=== PATIENT | male | born 1970 | race Caucasian/White ===

== ENCOUNTER 2017-01-14 20:26 | Emergency (ER) ==
[2017-01-14] MEDS ORDERED: KEPPRA PO ONE (20:41)
[2017-01-14] MEDS ORDERED: TYLENOL PO ONE (20:42)
[2017-01-14] MEDS ORDERED: KEPPRA 500 MG in NS 100 ML IV ONE (20:45)
[2017-01-14] MEDS ORDERED: TORADOL IV ONE (20:45)
--- NOTE | 2017-01-14 20:47 | PROVIDER DOCUMENTATION ---
HPI-Neurological Disorder - General Source: patient - History of Present Illness-Neuro Onset/Duration: reports: just prior to arrival Timing: reports: intermittent Context: reports: seizure activity Cognitive Baseline: alert, oriented x3 Gait Baseline: walks without assistance Associated Symptoms: reports: seizures Similar Symptoms Previously?: Yes Recently seen or treated by another doctor?: Yes - Seizure First time to have a seizure?: No Witnessed seizure?: Yes Character of Seizure: reports: generalized shaking all over Post-ictal Symptoms: reports: none Seizure related injury: none <Blanca Saba - Last Filed: 01/14/17 22:06> <Manav Reis - Last Filed: 01/14/17 22:08> - General Chief Complaint: Seizure Stated Complaint: seizure Time Seen by Provider: 01/14/17 20:40 Allergies/Adverse Reactions: Patient Allergies Allergy/AdvReac Type Severity Reaction Status Date / Time Penicillins Allergy Severe ANAPHYLAXIS Verified 12/25/16 22:08 phenytoin sodium * Allergy Severe ANAPHYLAXIS Verified 12/25/16 22:08 [From Dilantin] phenytoin sodium extended * Allergy Severe ANAPHYLAXIS Verified 12/25/16 22:08 [From Dilantin] Home Medications: Home Medication List Medication Instructions Recorded Confirmed Last Taken Type Levetiracetam [Keppra] 1,000 mg PO BID #60 tablet 10/17/16 01/14/17 12/25/16 18: 00 Rx Levetiracetam [Keppra] 1,000 mg PO BID #60 tablet 01/14/17 Unknown Rx - History of Present Illness-Neuro Nature of Presenting Problem: 46 year old M presents to the ED 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 Pt states that he was just release from custodial and has no money to buy his medications. ( Blanca Saba) Review of Systems - Adult - REVIEW OF SYSTEMS - ADULT Constitutional: denies: chills, fever Eyes: reports: no symptoms reported Ears, Nose, Mouth & Throat: reports: no symptoms reported Cardiovascular: denies: chest pain, palpitations Respiratory: denies: cough, shortness of breath Gastrointestinal: denies: abdominal pain, nausea, vomiting Genitourinary: reports: no symptoms reported Musculoskeletal: reports: no symptoms reported Integumentary: reports: no symptoms reported Neurological: reports: seizure. denies: syncope Psychiatric: reports: no symptoms reported Endocrine: reports: no symptoms reported Hematologic/Lymphatic: reports: no symptoms reported Allergic/Immunologic: reports: no symptoms reported All Other Systems: Reviewed and Negative <Blanca Saba - Last Filed: 01/14/17 22:06> Past History - Adult - PAST MEDICAL HISTORY-ADULT Review of Records: reports: Nursing Assessment Review, Medications Reviewed Major Childhood Illnesses: reports: denies history Gastrointestinal: reports: hepatitis (C) Neurological: reports: Seizures/Epilepsy (alcohol withdrawal) - PRIOR SURGERIES/PROCEDURES Surgical/Procedure History: reports: back/neck - IMMUNIZATION STATUS Childhood Immunizations: See Nurse Assessment Flu Vaccine: See Nurse Assessment - SOCIAL HISTORY Smoking: cigarettes Provider spent 3-5 mins advising pt. on dangers of tobacco.: Discussed manners to quit use, and f/u contacts for add'l counseling. Substance Use: none presently/history of abuse, alcohol Alcohol Use Frequency: sober (former use) <Blanca Saba - Last Filed: 01/14/17 22:06> Physical Exam- Neurological - Physical Exam-Neuro Initial Vital Signs Reviewed: Yes General Appearance: appears well, alert, no apparent distress Head Injury: no evidence of injury Respiratory: chest non-tender, lungs clear, normal breath sounds Cardiovascular: normal peripheral pulses, regular rate, rhythm, no edema Abdominal Exam: normal bowel sounds, non tender, soft fur mixer Exam: normal hearing, normal speech, PERRL Neurologic: fur mixer II-XII nml as tested, no motor/sensory deficits Integumentary: normal color, normal turgor, warm/dry Psych/Mental Status: normal mood/affect, normal thought content, normal thought process, oriented x 3 <Blanca Saba - Last Filed: 01/14/17 22:06> Progress - REASSESSMENT Reassessment #1 Time Reassessed: 20:43 (Pt seizing, Dr. Reis made aware. Keppra IV ordered) <Blanca Saba - Last Filed: 01/14/17 22:06> <Manav Reis - Last Filed: 01/14/17 22:08> - PLAN OF CARE/RESULTS Progress/Plan/Lab Results: plan of care: labs, medications Orders Category Date Time Status URINE DRUG SCREEN PL Stat Lab 01/14/17 21:07 Completed Acetaminophen [Tylenol] Med 01/14/17 21:06 Discontinued 650 mg .ROUTE .STK-MED ONE Acetaminophen [Tylenol] Med 01/14/17 20:42 Discontinued 650 mg PO NOW ONE Ketorolac [Toradol] Med 01/14/17 20:45 Discontinued 30 mg IV NOW ONE Levetiracetam [Keppra] Med 01/14/17 21:06 Discontinued 1,000 mg .ROUTE .STK-MED ONE Levetiracetam [Keppra] Med 01/14/17 20:41 Discontinued 1,000 mg PO NOW ONE Levetiracetam [Keppra] Med 01/14/17 21:49 Discontinued 500 mg .ROUTE .STK-MED ONE Levetiracetam [Keppra] 500 mg Med 01/14/17 20:45 Discontinued 0.9% Sodium Chloride Inj [Ns] 100 ml IV NOW Laboratory Tests 01/14/17 21:07 Urine Opiates Screen NONE DETECTED Ur Oxycodone Screen NONE DETECTED Urine Methadone Screen NONE DETECTED Ur Barbituates Screen NONE DETECTED Ur Tricyclics Screen NONE DETECTED Ur Phencyclidine Scrn NONE DETECTED Ur Amphetamines Screen NONE DETECTED U Methamphetamines Scrn NONE DETECTED Urine MDMA Screen NONE DETECTED U Benzodiazepines Scrn NONE DETECTED Urine Cocaine Screen NONE DETECTED U Cannabinoids Screen NONE DETECTED Vital Signs - 24 hr 01/14/17 20:29 Temperature 98.2 F Pulse Rate 102 H Respiratory 18 Rate Blood Pressure 113/81 O2 Sat by Pulse 98 Oximetry Pt given results and will be d/c home w/ rx to follow up with PCP. Pt verbally understood instructions. PT remained clinically stable throughout the course of the ED stay and will return if symptoms worsen. (Blanca Saba) Departure <Blanca Saba - Last Filed: 01/14/17 22:06> - Departure Time of Disposition Order: 22:00 Certified Medical Emergency: Emergent <Manav Reis - Last Filed: 01/14/17 22:08> - Departure DIAGNOSIS: Epilepsy without status epilepticus Qualifiers: Epilepsy type: epileptic spasms Intractability: not intractable Qualified Code( s): G40.822 - Epileptic spasms, not intractable, without status epilepticus Disposition: HOME 01 Condition: Stable Prescriptions: Levetiracetam [Keppra] 1,000 mg PO BID #60 tablet Attestation - Scribe Verification/Attestation Scribe:: Blanca Saba Acting as Scribe for:: Manav Reis Scribe documention review:: This chart was documented by a scribe and accurately reflects the service the provider performed and the decisions made by the provider. <Blanca Saba - Last Filed: 01/14/17 22:06> Physician Attestation - Physician Attestation I, the provider, attest to the following statement:: Manav Reis Physician documentation Attestation:: This documentation recorded by the scribe accurately reflects the service I personally performed and the decisions made by me. <Blanca Saba - Last Filed: 01/14/17 22:06>
[2017-01-14] MEDS ORDERED: TYLENOL ONE (21:06)
[2017-01-14] MEDS ORDERED: KEPPRA ONE ×2 (21:06→21:49)
[2017-01-14 22:00] LABS: UR AMPHETAMINES QUAL NONE DETECTED (NONE DETECT); UR BARBITUATES QUAL NONE DETECTED (NONE DETECT); UR BENZODIAZEPIN QUAL NONE DETECTED (NONE DETECT); UR CANNABINOIDS QUAL NONE DETECTED (NONE DETECT); UR COCAINE QUAL NONE DETECTED (NONE DETECT); UR MDMA QUAL NONE DETECTED (NONE DETECT); UR METHADONE QUAL NONE DETECTED (NONE DETECT); UR METHAMPHETAMINE QUAL NONE DETECTED (NONE DETECT); UR OPIATES QUAL NONE DETECTED (NONE DETECT); UR OXYCODONE QUAL NONE DETECTED (NONE DETECT); UR PCP QUAL NONE DETECTED (NONE DETECT); UR TCA QUAL NONE DETECTED (NONE DETECT)
[2017-01-14 22:28] VITALS: BP 114/82
== END 2017-01-14 22:27 | disposition home or self-care (01) ==
LOC: P.ED 20:26
DX: G40.822 Epileptic spasms, not intractable, without status epilepticus (principal); B19.20 Unspecified viral hepatitis C without hepatic coma; F17.210 Nicotine dependence, cigarettes, uncomplicated; Z71.6 Tobacco abuse counseling; Z79.899 Other long term (current) drug therapy
CPT/HCPCS: 80305; J1885; J1953

== ENCOUNTER 2017-01-17 12:06 | Emergency (ER) ==
[2017-01-17 12:29] VITALS: BP 118/65
[2017-01-17] MEDS ORDERED: NORCO-7.5 PO ONE (12:49)
[2017-01-17] MEDS ORDERED: ZOFRAN ODT PO ONE (12:49)
--- NOTE | 2017-01-17 12:56 | PROVIDER DOCUMENTATION ---
HPI-Musculoskeletal Pain/Inj - GENERAL Source: patient - HX OF PRESENT ILLNESS-MUSKULOSKELTAL Quality of Pain: reports: aching Severity in ED: moderate Onset/Duration: 24 hours ago Timing: still present Any recent injury?: Yes Locality of Occurance: Home Similar Symptoms Previously?: Yes Recently seen or treated by another doctor?: No <Kaylee Thompson - Last Filed: 01/17/17 12:56> <Wily Lorenzana - Last Filed: 01/17/17 13:02> - GENERAL Chief Complaint: Extremity Injury Stated Complaint: ANKLE INJURY Time Seen by Provider: 01/17/17 12:30 - HX OF PRESENT ILLNESS-MUSKULOSKELTAL Nature of Presenting Problem: Presents to er with cc of left ankle pain x 1 day reports rolled left ankle now has swelling. Hx of left ankle fx. (Kaylee Thompson) Review of Systems - Adult - REVIEW OF SYSTEMS - ADULT Constitutional: denies: chills, fever, fatique Eyes: reports: no symptoms reported Ears, Nose, Mouth & Throat: denies: ear discharge, sinus problem, loose teeth Cardiovascular: reports: no symptoms reported Respiratory: reports: no symptoms reported Gastrointestinal: reports: no symptoms reported Genitourinary: reports: no symptoms reported Musculoskeletal: reports: see HPI, joint pain, joint swelling. denies: frequent leg cramps, muscle weakness, neck pain Integumentary: reports: no symptoms reported Neurological: reports: no symptoms reported Psychiatric: reports: no symptoms reported Endocrine: reports: no symptoms reported Hematologic/Lymphatic: reports: no symptoms reported Allergic/Immunologic: reports: no symptoms reported All Other Systems: Reviewed and Negative <Kaylee Thompson - Last Filed: 01/17/17 12:56> Past History - Adult - PAST MEDICAL HISTORY-ADULT Review of Records: reports: Nursing Assessment Review, Medications Reviewed Major Childhood Illnesses: reports: denies history Gastrointestinal: reports: hepatitis (C) Neurological: reports: Seizures/Epilepsy (alcohol withdrawal) - PRIOR SURGERIES/PROCEDURES Surgical/Procedure History: reports: back/neck - IMMUNIZATION STATUS Childhood Immunizations: See Nurse Assessment Flu Vaccine: See Nurse Assessment - SOCIAL HISTORY Smoking: denies Substance Use: none/never <Kaylee Thompson - Last Filed: 01/17/17 12:56> Physical Exam-Injury Related - Physical Exam-Injury Related Initial Vital Signs Reviewed: Yes General Appearance: appears well, alert, no apparent distress Eyes: PERRL/EOMI Neck: non-tender, full range of motion, supple, normal inspection Respiratory: chest non-tender, lungs clear, normal breath sounds, no pleuratic chest pain, no respiratory distress, no accessory muscle use Cardiovascular: regular rate, rhythm, no edema, no gallop, no JVD, no murmur Peripheral Pulses: dorsalis-pedis (R): 2+, dorsalis-pedis (L): 2+ Abdominal Exam: non tender, soft, no organomegaly, no pulsatile mass Extremity: normal range of motion, no pedal edema, no calf tenderness, swelling (lateral aspect left ankle), tenderness (ttp left ankle) Integumentary: normal color, warm/dry Psych/Mental Status: normal mood/affect, normal thought content, normal thought process, oriented x 3 - Glascow Coma Score Best Eye Response (Carla): (4) open spontaneously Best Verbal Response (Carla): (5) oriented Best Motor Response ([place]): (6) obeys commands Carla Total: 15 <Kaylee Thompson - Last Filed: 01/17/17 12:56> Progress - XRAY 1 XRAY: Left XRAY Study: Ankle Impression: Normal (no acute fx old fx noted), See EMR Report <Kaylee Thompson - Last Filed: 01/17/17 12:56> <Wily Lorenzana - Last Filed: 01/17/17 13:02> - PLAN OF CARE/RESULTS Progress/Plan/Lab Results: Orders Category Date Time Status [place] Wrap Application DIRECTED Care 01/17/17 12:52 Active Crutches DIRECTED Care 01/17/17 12:52 Active ANKLE COMPLETE LEFT [RAD] Stat Exams 01/17/17 12:30 Taken Hydrocodone/APAP 7.5 mg/325 mg [[place]-7.5] Med 01/17/17 12:49 Discontinued 1 each PO NOW ONE Ondansetron Odt [Zofran Odt] Med 01/17/17 12:49 Discontinued 4 mg PO NOW ONE Vital Signs - 24 hr 01/17/17 12:27 Temperature 97.7 F Pulse Rate 120 H Respiratory 20 Rate Blood Pressure 118/65 O2 Sat by Pulse 100 Oximetry (Kaylee Thompson) Departure <Kaylee Thompson - Last Filed: 01/17/17 12:56> - Departure Time of Disposition Order: 13:00 Certified Medical Emergency: Urgent <Wily Lorenzana - Last Filed: 01/17/17 13:02> - Departure DIAGNOSIS: Left ankle sprain Qualifiers: Encounter type: initial encounter Involved ligament of ankle: unspecified ligament Qualified Code(s): S93.402A - Sprain of unspecified ligament of left ankle, initial encounter Disposition: HOME 01 Condition: Good Additional Instructions: Take medication as prescribed. Rest, ice and elevate. Follow up with an orthopedist. ED Follow Up Instructions: You have been treated by a care provider in the Emergency Department. These instructions are being provided to you so you can have an understanding of how to care for yourself upon discharge. Upon discharge from the Emergency Department, you are responsible for making arrangements for follow-up care by a physician of your choice. Take all prescribed medications as directed. Return to the Emergency Department immediately for any new or worsening symptoms. You may call the Physician Referral phone number at [phone] to obtain a list of Physicians who are taking new patients. Prescriptions: Cyclobenzaprine [Flexeril] 10 mg PO TID #20 tablet Meloxicam [Mobic] 7.5 mg PO DAILY PRN PRN #15 tablet PRN Reason: Pain Referrals: None,PCP [Primary Care Provider] - Grant Wray MD [STAFF PHYSICIAN] - Attestation - Scribe Verification/Attestation Scribe:: Kaylee Thompson Acting as Scribe for:: Wily Lorenzana Scribe documention review:: This chart was documented by a scribe and accurately reflects the service the provider performed and the decisions made by the provider. <Kaylee Thompson - Last Filed: 01/17/17 12:56> - Physician/ JAYY Attestation Patient care was provided by Advanced Practice Provider:: Yes Advanced Practice Provider:: Wily Lorenzana Advanced Practice Provider documentation review:: The Mid-level provider documentation, treatment plan and medical decision making was reviewed by the physician who agrees with all treatment and medical decision making by the [facility]. <Wily Lorenzana - Last Filed: 01/17/17 13:02> Physician Attestation
--- NOTE | 2017-01-17 13:35 | Diag Imaging Result Document ---
PROCEDURE NAME: ANKLE COMPLETE LEFT - 01/17/2017 LEFT ANKLE, THREE VIEWS: FINDINGS: There is lateral soft tissue swelling. There is an os subfibulare. This is a normal variant. No fracture. No dislocation. IMPRESSION: No acute bony injury.
== END 2017-01-17 13:33 | disposition home or self-care (01) ==
LOC: ED 12:06
DX: S93.402A Sprain of unspecified ligament of left ankle, initial encounter (principal); M25.572 Pain in left ankle and joints of left foot; M25.472 Effusion, left ankle; R56.9 Unspecified convulsions; B19.20 Unspecified viral hepatitis C without hepatic coma; Z79.899 Other long term (current) drug therapy; X58.XXXA Exposure to other specified factors, initial encounter
CPT/HCPCS: 99283

== ENCOUNTER 2017-01-24 20:01 | Emergency (ER) ==
[2017-01-24] MEDS ORDERED: KEPPRA 500 MG in NS 100 ML IV ONE (20:05)
[2017-01-24] MEDS ORDERED: ATIVAN IV ONE (20:05)
--- NOTE | 2017-01-24 20:09 | PROVIDER DOCUMENTATION ---
HPI-Neurological Disorder - General Source: patient, EMS - History of Present Illness-Neuro Severity: reports: severe Onset/Duration: reports: unsure Timing: reports: intermittent Context: reports: seizure activity Character of Altered Mental Status: reports: trouble concentrating, seizure activity, decreased responsiveness. denies: disoriented, confused, combative, agitated, unresponsive Any recent trauma/injury?: reports: to head Cognitive Baseline: alert, oriented x3 Gait Baseline: walks without assistance Associated Symptoms: reports: headache, fainting, neck/back pain, muscle spasms , seizures. denies: short of breath, dizziness, confusion, chest pain, loss of consciousness, nausea, paresthesia, sleepy, slurred speech, tingling in legs/ feet, trouble walking, vision changes, weakness - Seizure First time to have a seizure?: No Witnessed seizure?: Yes Episode details: reports: details of seizure cannot be obtained, details of seizure cannot be verified Episode Frequency: frequent episodes Preceding symptoms/context:: missed recent doses of seizure meds (out of rx; hit head earlier today) Character of Seizure: reports: generalized shaking all over. denies: staring Post-ictal Symptoms: reports: none <Michael Avilez - Last Filed: 01/24/17 20:41> <Satya Montana - Last Filed: 01/24/17 20:48> - General Stated Complaint: seizure Time Seen by Provider: 01/24/17 20:03 Allergies/Adverse Reactions: Patient Allergies Allergy/AdvReac Type Severity Reaction Status Date / Time Penicillins Allergy Severe ANAPHYLAXIS Verified 01/17/17 12:50 phenytoin sodium * Allergy Severe ANAPHYLAXIS Verified 01/17/17 12:50 [From Dilantin] phenytoin sodium extended * Allergy Severe ANAPHYLAXIS Verified 01/17/17 12:50 [From Dilantin] Home Medications: Home Medication List Medication Instructions Recorded Confirmed Last Taken Type Levetiracetam [Keppra] 1,000 mg PO BID #60 tablet 01/14/17 01/17/17 Unknown Rx Cyclobenzaprine [Flexeril] 10 mg PO TID #20 tablet 01/17/17 Unknown Rx Meloxicam [Mobic] 7.5 mg PO DAILY PRN PRN #15 tablet 01/17/17 Unknown Rx Gabapentin [Neurontin] 300 mg PO BID #60 capsule 01/24/17 Unknown Rx - History of Present Illness-Neuro Nature of Presenting Problem: Pt is a 46 yom who presents to ER via EMS with CC of seizures x4 today. Pt reports that he was discharged from retirement 4 days ago, has a L ankle fx (betina bandaged) (previous report did not indicate any fx of wrist/ankle) and reports that he fell earlier today (time unspecified). Pt has hx of seizures and reports is out of his kepra, and is now complaining of head/neck pain as well as L ankle pain. 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 (Michael Avilez) Review of Systems - Adult - REVIEW OF SYSTEMS - ADULT Constitutional: denies: chills, fever, fatique, night sweats, weight gain, weight loss Eyes: reports: no symptoms reported Ears, Nose, Mouth & Throat: reports: no symptoms reported Cardiovascular: denies: chest pain, edema, heart murmur, irregular heart rate, orthopnea, palpitations, poor circulation, PND, syncope Respiratory: reports: no symptoms reported Gastrointestinal: reports: no symptoms reported Genitourinary: reports: no symptoms reported Musculoskeletal: reports: neck pain. denies: bone pain, back pain, frequent leg cramps, joint pain, joint swelling, muscle aches, muscle weakness Integumentary: reports: no symptoms reported Neurological: reports: headache/migraines, seizure, tremors. denies: ataxia, dizziness/vertigo, loss of balance, numbness, paresthesia, slurred speech, syncope Psychiatric: reports: no symptoms reported Endocrine: reports: no symptoms reported Hematologic/Lymphatic: reports: no symptoms reported Allergic/Immunologic: reports: no symptoms reported All Other Systems: Reviewed and Negative <Michael Avilez - Last Filed: 01/24/17 20:41> Past History - Adult - PAST MEDICAL HISTORY-ADULT Review of Records: reports: Nursing Assessment Review, Medications Reviewed Gastrointestinal: reports: hepatitis (C) Neurological: reports: Seizures/Epilepsy (alcohol withdrawal) - PRIOR SURGERIES/PROCEDURES Surgical/Procedure History: reports: back/neck - IMMUNIZATION STATUS Childhood Immunizations: See Nurse Assessment Flu Vaccine: See Nurse Assessment <Michael Avilez - Last Filed: 01/24/17 20:41> Physical Exam- Neurological - Physical Exam-Neuro Initial Vital Signs Reviewed: Yes General Appearance: appears well, alert, mild distress, lethargic. negative: no apparent distress, slow to respond, obtunded, combative Eye Exam: bilateral eye: normal inspection, PERRL, EOMI Head Injury: no evidence of injury. negative: lacerations, swelling, tenderness Neck: non-tender, full range of motion, supple. negative: C-spine tenderness, limited range of motion, lymphadenopathy Respiratory: chest non-tender, lungs clear, normal breath sounds. negative: respiratory distress, decreased breath sounds, accessory muscle use, wheezing Cardiovascular: normal peripheral pulses, regular rate, rhythm. negative: bradycardia, tachycardia, irregularly irregular Abdominal Exam: normal bowel sounds, non tender, soft, no organomegaly, no pulsatile mass. negative: abnormal bowel sounds, distended, tenderness Extremity: normal range of motion, non-tender, normal gait, normal inspection, no pedal edema, no calf tenderness, normal capillary refill. 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 negative: facial asymmetry, facial droop, facial paresthesias, facial weakness Motor/Sensory: no motor deficit, no sensory deficit, no pronator drift. negative: weak motor strength RUE, weak motor strength LUE, weak motor strength RLE, weak motor strength LLE Neurologic: dye colorist formulator II-XII nml as tested, grossly normal, no motor/sensory deficits . negative: facial droop, focal weakness, motor weakness, sensory deficit Psych/Mental Status: normal mood/affect, normal thought content, normal thought process, oriented x 3, disheveled, depressed affect - Glascow Coma Scale Total Glascow Score: 15 <Michael Avilez - Last Filed: 01/24/17 20:41> Progress - REASSESSMENT Reassessment #1 Time Reassessed: 20:37 Status: improving (Pt is A/Ox3; Still on backboard and C-collar, holding phone above head with bilateral upper extremities, no acute distress. Pt reports that he is no longer having any neck pain, but does still complain of head pain and is requesting rx for neurontin) - CT/MRI 1 CT Study: Cervical Spine, Head Impression: See EMR Report CT Results: Negative <Michael Avilez - Last Filed: 01/24/17 20:41> - REASSESSMENT Reassessment #1 Time Reassessed: 20:47 (fluu rom of all extremities/gcs=15 .pt agree w/dc home ) Status: improving <Satya Montana - Last Filed: 01/24/17 20:48> - PLAN OF CARE/RESULTS Progress/Plan/Lab Results: POC: Head/Neck CT Vital Signs - 24 hr 01/24/17 20:28 Temperature 98.3 F Pulse Rate 122 H Respiratory 20 Rate Blood Pressure 116/70 O2 Sat by Pulse 94 L Oximetry Orders Category Date Time Status HEAD/C-SPINE W/O CONTRAST [CT] Stat Exams 01/24/17 20:03 Taken ALCOHOL BLOOD Stat Lab 01/24/17 20:03 Received BASIC METABOLIC PANEL [CHEM] Stat Lab 01/24/17 20:03 Received MAGNESIUM [CHEM] Stat Lab 01/24/17 20:03 Completed Gabapentin [Neurontin] Med 01/24/17 20:41 Discontinued 600 mg PO NOW ONE Ketorolac [Toradol] Med 01/24/17 20:41 Discontinued 30 mg IV NOW ONE Levetiracetam [Keppra] 500 mg Med 01/24/17 20:05 Discontinued 0.9% Sodium Chloride Inj [Ns] 100 ml IV NOW Lorazepam [Ativan] Med 01/24/17 20:05 Discontinued 1 mg IV NOW ONE Laboratory Tests 01/24/17 20:03 Magnesium 2.3 (Michael Avilez) Departure - Departure Time of Disposition Order: 20:42 Certified Medical Emergency: Emergent <Michael Avilez - Last Filed: 01/24/17 20:41> - Departure Time of Disposition Order: 20:46 Certified Medical Emergency: Emergent <Satya Montana - Last Filed: 01/24/17 20:48> - Departure DIAGNOSIS: Seizure, Chronic neck and back pain Disposition: HOME 01 Condition: Stable Additional Instructions: ED Follow Up Instructions: You have been treated by a care provider in the Emergency Department. These instructions are being provided to you so you can have an understanding of how to care for yourself upon discharge. Upon discharge from the Emergency Department, you are responsible for making arrangements for follow-up care by a physician of your choice. Take all prescribed medications as directed. Return to the Emergency Department immediately for any new or worsening symptoms. You may call the Physician Referral phone number at [phone] to obtain a list of Physicians who are taking new patients. Prescriptions: Gabapentin [Neurontin] 300 mg PO BID #60 capsule Referrals: Trina Vang III, MD [STAFF PHYSICIAN] - Attestation - Scribe Verification/Attestation Scribe:: Michael Avilez Acting as Scribe for:: Satya Montana Scribe documention review:: This chart was documented by a scribe and accurately reflects the service the provider performed and the decisions made by the provider. <Michael Avilez - Last Filed: 01/24/17 20:41> Physician Attestation
[2017-01-24] MEDS ORDERED: TORADOL IV ONE (20:41)
[2017-01-24] MEDS ORDERED: NEURONTIN PO ONE (20:41)
[2017-01-24 21:01] LABS: AGAP 17; BUN 14 mg/dL (8-22); CALCIUM 9.4 mg/dL (8.8-10.2); CHLORIDE 100 mmol/L (98-107); COSMO 278; POTASSIUM 4.1 mmol/L (3.5-5.1); SODIUM 140 mmol/L (136-145); TCO2 23 mmol/L (25-35)
--- NOTE | 2017-01-24 21:32 | Diag Imaging Result Document ---
PROCEDURE NAME: HEAD/C-SPINE W/O CONTRAST - 01/24/2017 CT HEAD AND C-SPINE WITHOUT CONTRAST: COMPARISON: 12/25/2016. FINDINGS: HEAD: There is no discrete intracranial mass, mass effect, or intracranial hemorrhage. There is no evidence of acute infarct. There is no evidence of hydrocephalus. Surrounding soft tissues are grossly unremarkable. Calvaria is intact. C-SPINE: There has been a prior laminectomy at C4 and there is posterior fusion hardware at C3-4 and C4-5. The hardware is stable. There is no evidence of fracture, subluxation, or intrinsic osseous lesion, otherwise. The central canal appears to be patent. There are emphysematous changes at the lung apices. Surrounding soft tissues are grossly unremarkable, otherwise. IMPRESSION: 1. No evidence of acute intracranial pathology. 2. Postsurgical changes as described but no evidence of fracture or other definite acute C-spine injury.
[2017-01-24 22:02] VITALS: BP 126/78
== END 2017-01-24 22:10 | disposition home or self-care (01) ==
LOC: EDBD → EDUNIT# → ED 20:01
DX: R56.9 Unspecified convulsions (principal); M54.2 Cervicalgia; M54.9 Dorsalgia, unspecified; G89.29 Other chronic pain; R51 Headache; M62.838 Other muscle spasm; R25.1 Tremor, unspecified; B19.20 Unspecified viral hepatitis C without hepatic coma; R53.83 Other fatigue; Z79.899 Other long term (current) drug therapy
CPT/HCPCS: 70450; 72125; 80048; 83735; G0480; J1885; J1953; J2060; 80320

== ENCOUNTER 2017-01-25 23:58 | Emergency (ER) ==
[2017-01-26] MEDS ORDERED: ATIVAN IV ONE ×2 (00:02→01:56)
[2017-01-26] MEDS ORDERED: MOTRIN PO ONE (00:02)
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
[2017-01-26 00:58] LABS: AGAP 12; ALBUMIN 4.3 g/dL (3.5-5.0); ALKALINE PHOSPHATASE 72 U/L (32-122); BUN 15 mg/dL (8-22); CALCIUM 9.1 mg/dL (8.8-10.2); CHLORIDE 106 mmol/L (98-107); CK PROFILE 177 U/L (24-204); COSMO 287; GOT 32 U/L (10-34); GPT 49 U/L (10-44); SODIUM 142 mmol/L (136-145); TCO2 24 mmol/L (25-35); TOTAL BILIRUBIN 0.31 mg/dL (0.20-1.00); TOTAL PROTEIN 7.5 g/dL (6.3-8.3)
[2017-01-26 01:07] LABS: UR AMPHETAMINES QUAL NONE DETECTED (NONE DETECT); UR BARBITUATES QUAL NONE DETECTED (NONE DETECT); UR BENZODIAZEPIN QUAL NONE DETECTED (NONE DETECT); UR CANNABINOIDS QUAL NONE DETECTED (NONE DETECT); UR COCAINE QUAL NONE DETECTED (NONE DETECT); UR METHADONE QUAL NONE DETECTED (NONE DETECT); UR OPIATES QUAL NONE DETECTED (NONE DETECT); UR OXYCODONE QUAL NONE DETECTED (NONE DETECT); UR PCP QUAL NONE DETECTED (NONE DETECT)
[2017-01-26] MEDS ORDERED: AMMONIA AROMATIC ONE (01:09)
[2017-01-26] MEDS ORDERED: VALIUM ONE (01:50)
[2017-01-26] MEDS ORDERED: ATIVAN ONE (01:50)
[2017-01-26] MEDS ORDERED: VALIUM IV ONE (02:06)
[2017-01-26] MEDS ORDERED: KEPPRA 500 MG in NS 100 ML IV ONE (02:41)
[2017-01-26] MEDS ORDERED: MOTRIN ONE (02:53)
[2017-01-26 03:25] VITALS: BP 99/58
== END 2017-01-26 03:31 | disposition home or self-care (01) ==
LOC: EDUNIT# → EDBD → ED 23:58
DX: R56.9 Unspecified convulsions (principal); M54.2 Cervicalgia; M54.9 Dorsalgia, unspecified; G89.29 Other chronic pain; R51 Headache; B19.20 Unspecified viral hepatitis C without hepatic coma; Z79.899 Other long term (current) drug therapy
CPT/HCPCS: 80053; 82550; 82948; 84484; 96374; 96375; 96376; G0480; J1953; J2060; J3360; 80324; 80345; 80346; 80349; 80353; 80358; 80361; 80365; 83992

== ENCOUNTER 2017-03-07 14:14 | Inpatient (IN) ==
[2017-03-07] MEDS ORDERED: ATIVAN ONE (14:17)
[2017-03-07] MEDS ORDERED: KEPPRA 500 MG in NS 100 ML IV ONE ×2 (14:22→18:00)
[2017-03-07] MEDS ORDERED: ATIVAN IV ONE ×3 (14:25→18:01)
[2017-03-07] MEDS ORDERED: NS 1,000 ML IV SCH (14:27)
[2017-03-07 14:53] LABS: MANUAL DIFF NEEDED? NO
[2017-03-07 14:57] LABS: BASO% 0.2 % (0.0-0.8); EOS# 0.19 X1000 (0.0-0.7); EOS% 4.2 % (0.0-10.0); HEMATOCRIT 39.8 % (42.0-52.0); HEMOGLOBIN 13.9 g/dL (14.0-18.0); LYMPH# 1.02 X1000 (1.2-3.4); LYMPH% 22.5 % (20.5-51.1); MCHC 34.9 g/dL (33-37); MCV 91.5 FL (81-99); MONO# 0.46 X1000 (0.11-0.59); MONO% 10.2 % (1.7-9.3); MPV 8.8 FL (7.4-10.4); NEUT% 62.9 % (42.2-75.2); PLT 138 X1000 (130-400); RBC 4.35 XMIL (4.7-6.1)
[2017-03-07] MEDS ORDERED: NORCO-10 ONE (15:20)
[2017-03-07 15:27] LABS: AGAP 13; ALBUMIN 4.1 g/dL (3.5-5.0); ALKALINE PHOSPHATASE 72 U/L (32-122); BUN 18 mg/dL (8-22); CALCIUM 9.1 mg/dL (8.8-10.2); CHLORIDE 101 mmol/L (98-107); COSMO 275; GOT 42 U/L (10-34); GPT 42 U/L (10-44); POTASSIUM 3.6 mmol/L (3.5-5.1); SODIUM 137 mmol/L (136-145); TCO2 23 mmol/L (25-35); TOTAL BILIRUBIN 0.65 mg/dL (0.20-1.00); TOTAL PROTEIN 7.8 g/dL (6.3-8.3)
[2017-03-07] MEDS ORDERED: NORCO-10 PO ONE (15:33)
[2017-03-07] MEDS ORDERED: NEURONTIN PO PRN ×2 (16:31→16:40)
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
--- NOTE | 2017-03-07 17:15 | Diag Imaging Result Document ---
PROCEDURE NAME: HEAD W/O CONTRAST - 03/07/2017 CT BRAIN WITHOUT CONTRAST: FINDINGS: Compared to 02/20/2017. No parenchymal hemorrhage. No epidural or subdural hematoma. No subarachnoid hemorrhage. No hydrocephalus. No mass identified on this noncontrasted exam. No sinus opacification. IMPRESSION: No hemorrhage. Negative brain CT without contrast. A preliminary report was given at 5:02 PM.
[2017-03-07] MEDS: VICOPROFEN 200/7.5 MG PO PRN (17:25)
--- NOTE | 2017-03-07 18:35 | PROVIDER DOCUMENTATION ---
This chart was entered by Tamie Fernandez Scribe, acting as scribe for Andrez King MD. HPI-Neurological Disorder - General Chief Complaint: Seizure Stated Complaint: seizure Time Seen by Provider: 03/07/17 14:21 Allergies/Adverse Reactions: Patient Allergies Allergy/AdvReac Type Severity Reaction Status Date / Time Penicillins Allergy Severe ANAPHYLAXIS Verified 03/07/17 15:08 phenytoin sodium * Allergy Severe ANAPHYLAXIS Verified 03/07/17 15:08 [From Dilantin] phenytoin sodium extended * Allergy Severe ANAPHYLAXIS Verified 03/07/17 15:08 [From Dilantin] topiramate [From Topamax] Allergy HIVES Verified 03/07/17 15:08 Home Medications: Home Medication List Medication Instructions Recorded Confirmed Last Taken Type Levetiracetam [Keppra] 1,000 mg PO BID #60 tablet 01/14/17 03/07/17 02/04/17 08: 00 Rx Gabapentin [Neurontin] 600 mg PO TID PRN #90 capsule 02/20/17 03/07/17 Unknown Rx - History of Present Illness-Neuro Headache Location: denies: frontal, temporal, occipital, parietal, global Severity: reports: moderate Onset/Duration: reports: just prior to arrival Timing: reports: intermittent Context: reports: seizure activity Character of Altered Mental Status: reports: seizure activity Any recent trauma/injury?: reports: none New weakness or altered sensation location:: reports: none Cognitive Baseline: alert, oriented x3 Gait Baseline: walks without assistance Associated Symptoms: reports: seizures. denies: short of breath, headache, decreased ability to walk or stand, fainting, dizziness, confusion, chest pain, neck/back pain, fatigue, fever/chills, insomnia, loss of consciousness, muscle spasms, nausea, numbness in legs/feet, paresthesia, diaphoretic, ringing in ears , sleepy, slurred speech, tingling in legs/feet, trouble walking, vomiting, vision changes, weakness Similar Symptoms Previously?: Yes Recently seen or treated by another doctor?: No - Seizure First time to have a seizure?: No Witnessed seizure?: Yes How many seizure episodes?: 3 Episode details: reports: unknown duration, details of seizure cannot be obtained Episode Frequency: rare episodes Status Epilepticus: No Preceding symptoms/context:: none Character of Seizure: reports: lost consciousness, generalized shaking all over . denies: incontinent of urine, incontinent of stool Post-ictal Symptoms: reports: confusion Seizure related injury: none Review of Systems - Adult - REVIEW OF SYSTEMS - ADULT Constitutional: reports: no symptoms reported Eyes: reports: no symptoms reported Ears, Nose, Mouth & Throat: reports: no symptoms reported Cardiovascular: reports: no symptoms reported Respiratory: reports: no symptoms reported Gastrointestinal: reports: no symptoms reported Genitourinary: reports: no symptoms reported Musculoskeletal: reports: no symptoms reported Integumentary: reports: no symptoms reported Neurological: reports: seizure. denies: dizziness/vertigo, headache/migraines, syncope Psychiatric: reports: no symptoms reported Endocrine: reports: no symptoms reported Hematologic/Lymphatic: reports: no symptoms reported Allergic/Immunologic: reports: no symptoms reported All Other Systems: Reviewed and Negative Past History - Adult - PAST MEDICAL HISTORY-ADULT Review of Records: reports: Nursing Assessment Review, Medications Reviewed, Social history reviewed & non-contributory. Major Childhood Illnesses: reports: denies history Cardiovascular: reports: HTN Respiratory: reports: denies history Gastrointestinal: reports: hepatitis (C) Obstetrical/Gynecological: reports: denies history Genitourinary: reports: denies history Musculoskeletal: reports: denies history Neurological: reports: Seizures/Epilepsy (alcohol withdrawal) Psychiatric: reports: denies history Endocrine/Immune: reports: denies history Other Conditions: reports: denies history - PRIOR SURGERIES/PROCEDURES Surgical/Procedure History: reports: back/neck - IMMUNIZATION STATUS Childhood Immunizations: See Nurse Assessment Flu Vaccine: See Nurse Assessment - FAMILY HISTORY Family History: reviewed, not pertinent - SOCIAL HISTORY Smoking: cigarettes, less than 1 pack/day Provider spent 3-5 mins advising pt. on dangers of tobacco.: Discussed manners to quit use, and f/u contacts for add'l counseling. Substance Use: alcohol Alcohol Use Frequency: occasionally Number of drinks per typical drinking period:: 3-4 drinks Living Situation: family Physical Exam- Neurological - Physical Exam-Neuro Initial Vital Signs Reviewed: Yes General Appearance: appears well, alert, no apparent distress Eye Exam: bilateral eye: normal inspection, PERRL, EOMI HENMT: normocephalic/atraumatic, moist mucous membranes, normal ENT inspection, TMs normal, pharynx normal Head Injury: no evidence of injury Neck: non-tender, full range of motion, supple, normal inspection Respiratory: chest non-tender, lungs clear, normal breath sounds, no pleuratic chest pain, no respiratory distress, no accessory muscle use Cardiovascular: normal peripheral pulses, regular rate, rhythm, no edema, no gallop, no JVD, no murmur Abdominal Exam: normal bowel sounds, non tender, soft, no organomegaly, no pulsatile mass Lymphatic: no adenopathy Extremity: normal range of motion, non-tender, normal gait, normal inspection, no pedal edema, no calf tenderness, 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 Exam: normal hearing, normal speech, PERRL Motor/Sensory: no motor deficit, no sensory deficit, no pronator drift Neurologic: grossly normal Integumentary: normal color, normal turgor, warm/dry Psych/Mental Status: normal mood/affect, oriented x 3 Progress - PLAN OF CARE/RESULTS Progress/Plan/Lab Results: Vital Signs - 8 hr 03/07/17 14:33 03/07/17 15:34 Temperature 97.2 F L Pulse Rate 91 H 96 H Respiratory Rate 16 Blood Pressure 114/76 O2 Sat by Pulse Oximetry 98 95 Laboratory Results - last 24 hr 03/07/17 03/07/17 14:41 14:41 WBC 4.53 L RBC 4.35 L Hgb 13.9 L Hct 39.8 L MCV 91.5 MCH 32.0 H MCHC 34.9 RDW Std Deviation 12.1 Plt Count 138 MPV 8.8 Immature Gran % (Auto) 0.0 Neut % (Auto) 62.9 Lymph % (Auto) 22.5 Pierce % (Auto) 10.2 H Eos % (Auto) 4.2 Baso % (Auto) 0.2 Immature Gran # (Auto) 0.00 Neut # (Auto) 2.85 Lymph # (Auto) 1.02 L Pierce # (Auto) 0.46 Eos # (Auto) 0.19 Baso # (Auto) 0.01 Sodium 137 Potassium 3.6 Chloride 101 Carbon Dioxide 23 L Anion Gap 13 BUN 18 Creatinine 1.0 Estimated GFR/1.73 m2 > 60 BUN/Creatinine Ratio 18 Glucose 88 Calculated Osmolality 275 Calcium 9.1 Total Bilirubin 0.65 AST 42 H ALT 42 Alkaline Phosphatase 72 Total Protein 7.8 Albumin 4.1 Globulin 3.7 Albumin/Globulin Ratio 1.1 Orders Category Date Time Status CBC WITH ELECTRONIC DIFF [HEME] Stat Lab 03/07/17 14:41 Completed COMPREHENSIVE METABOLIC PANEL [CHEM] Stat Lab 03/07/17 14:41 Completed URINE DRUG SCREEN Stat Lab 03/07/17 15:42 Uncollected 0.9% Sodium Chloride Inj [Ns] 1,000 ml Med 03/07/17 14:27 Active IV 100 mls/hr Hydrocodone/APAP 10 mg/325 mg [[place]-10] Med 03/07/17 15:20 Discontinued 1 each .ROUTE .STK-MED ONE Hydrocodone/APAP 10 mg/325 mg [[place]-10] Med 03/07/17 15:33 Discontinued 1 each PO NOW ONE Levetiracetam [Keppra] 500 mg Med 03/07/17 14:22 Discontinued 0.9% Sodium Chloride Inj [Ns] 100 ml IV NOW Lorazepam [Ativan] Med 03/07/17 14:17 Discontinued 2 mg .ROUTE .STK-MED ONE Lorazepam [Ativan] Med 03/07/17 14:25 Discontinued 2 mg IV NOW ONE Result Diagrams: 03/07/17 14:41 03/07/17 14:41 Departure - Departure Time of Disposition Decision: 15:54 DIAGNOSIS: Seizure Disposition: ADMITTED INPATIENT 09 Certified Medical Emergency: Emergent Condition: Good Referrals and Follow-Ups: None,PCP [Primary Care Provider] - - Critical Care Note This patient required my direct personal management.: Yes Total Time (mins): 30 Critical Care Statement: This patient required my direct personal management to treat or rule out processes, the absence of which, could potentiallly result in sudden, clinically significant life or limb threatening deterioration. This chart was documented by the indicated scribe, (Tamie Fernandez Scribe) and accurately reflects the services I performed and decisions made by me, Andrez King MD, as attested by the provider's signature.
[2017-03-07] MEDS ORDERED: ZOFRAN IV PRN (18:58)
[2017-03-07 19:58] LABS: URINE CULTURE PL NEEDED? NO; URINE SOURCE CATH
[2017-03-07 20:14] LABS: BILIRUBIN URINE NEGATIVE (NEGATIVE); BLOOD URINE NEGATIVE (NEGATIVE); CLARITY SL. CLOUDY (CLEAR); COLOR YELLOW; GLUCOSE URINE NEGATIVE (NEGATIVE); LEUKOCYTES URINE NEGATIVE (NEGATIVE); NITRITE URINE NEGATIVE (NEGATIVE); PROTEIN URINE NEGATIVE (NEGATIVE); UROBILINOGEN URINE NORMAL
[2017-03-07 20:17] LABS: UR AMPHETAMINES QUAL NONE DETECTED (NONE DETECT); UR BARBITUATES QUAL NONE DETECTED (NONE DETECT); UR BENZODIAZEPIN QUAL PRESUMPTIVE POSITIVE (NONE DETECT); UR CANNABINOIDS QUAL NONE DETECTED (NONE DETECT); UR COCAINE QUAL NONE DETECTED (NONE DETECT); UR MDMA QUAL NONE DETECTED (NONE DETECT); UR METHADONE QUAL NONE DETECTED (NONE DETECT); UR METHAMPHETAMINE QUAL NONE DETECTED (NONE DETECT); UR OPIATES QUAL NONE DETECTED (NONE DETECT); UR OXYCODONE QUAL NONE DETECTED (NONE DETECT); UR PCP QUAL NONE DETECTED (NONE DETECT); UR TCA QUAL NONE DETECTED (NONE DETECT)
[2017-03-07 20:33] LABS: URINE EPITHELIAL CELLS <10 /HPF (<10); URINE RBC <10 /HPF (<10); URINE WBC <10 /HPF (<10)
[2017-03-07] MEDS: LOVENOX SUBQ SCH (21:11)
[2017-03-07] MEDS: PRILOSEC PO SCH (21:12)
[2017-03-07] MEDS: OFIRMEV 1000 MG/ISOTONIC SOLN 1,000 MG/100 ML BOTTLE IV SCH (21:12)
[2017-03-07] MEDS: NEURONTIN PO PRN (21:12)
[2017-03-07] MEDS: LIBRIUM PO SCH (21:12)
[2017-03-07] MEDS: ATIVAN IV PRN (21:40)
[2017-03-08] MEDS: OFIRMEV 1000 MG/ISOTONIC SOLN 1,000 MG/100 ML BOTTLE IV SCH (00:35)
[2017-03-08] MEDS: LIBRIUM PO SCH ×2 (01:56→08:25)
[2017-03-08] MEDS ORDERED: KEPPRA 1,000 MG/NS 1,000 MG/100 ML IVPB ONE (04:15)
[2017-03-08] MEDS ORDERED: KEPPRA 1,000 MG/NS 1,000 MG/100 ML IVPB IV ONE (05:00)
[2017-03-08] MEDS ORDERED: KEPPRA 500 MG in NS 100 ML IV ONE (05:00)
[2017-03-08 05:51] LABS: MANUAL DIFF NEEDED? NO
[2017-03-08 06:03] LABS: BASO% 0.5 % (0.0-0.8); EOS# 0.24 X1000 (0.0-0.7); EOS% 6.2 % (0.0-10.0); HEMATOCRIT 42.2 % (42.0-52.0); HEMOGLOBIN 14.4 g/dL (14.0-18.0); LYMPH# 1.41 X1000 (1.2-3.4); LYMPH% 36.5 % (20.5-51.1); MCH 31.4 PG (27-31); MCHC 34.1 g/dL (33-37); MCV 92.1 FL (81-99); MONO# 0.62 X1000 (0.11-0.59); MONO% 16.1 % (1.7-9.3); MPV 9.5 FL (7.4-10.4); NEUT% 40.7 % (42.2-75.2); PLT 138 X1000 (130-400); RBC 4.58 XMIL (4.7-6.1)
[2017-03-08] MEDS: PRILOSEC PO SCH (06:14)
[2017-03-08] MEDS: VICOPROFEN 200/7.5 MG PO PRN ×2 (06:14→20:57)
[2017-03-08 06:29] LABS: AGAP 13; ALBUMIN 3.8 g/dL (3.5-5.0); ALKALINE PHOSPHATASE 73 U/L (32-122); BUN 22 mg/dL (8-22); CALCIUM 8.6 mg/dL (8.8-10.2); CHLORIDE 102 mmol/L (98-107); COSMO 279; GOT 43 U/L (10-34); GPT 36 U/L (10-44); POTASSIUM 3.8 mmol/L (3.5-5.1); SODIUM 138 mmol/L (136-145); TCO2 23 mmol/L (25-35); TOTAL PROTEIN 6.5 g/dL (6.3-8.3)
[2017-03-08] MEDS: ATIVAN IV PRN ×3 (08:19→18:01)
[2017-03-08] MEDS: NEURONTIN PO PRN (08:25)
[2017-03-08] MEDS: MORPHINE IV PRN ×3 (12:32→20:56)
[2017-03-08] MEDS: KLONOPIN PO PRN ×2 (12:37→19:30)
[2017-03-08] MEDS: LAMICTAL PO SCH ×2 (12:37→20:55)
--- NOTE | 2017-03-08 13:08 | PROGRESS NOTE ---
DATE: 03/08/2017 SUBJECTIVE: Patient is a little bit sedated. He had a seizure this morning so he did require Ativan. 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 He has been in and out of the half-way system. Apparently the half-way he was in most recently they had dropped his dose of Keppra so he came in with intractable seizures. Had another seizure this morning. He had a seizure on his way from one place to [place] and was transferred actually to the ICU. Right now, he is talking and doing okay. OBJECTIVE: Blood pressure 102/64, heart rate of 86, respiratory rate 19, temperature 98.1 degrees, 97% on room air.Cardiovascular: Regular rate and rhythm. Pulmonary: Bilateral breath sounds. Clear to auscultation. GI: Soft, nontender, nondistended. Bowel sounds are positive. Extremities: No clubbing or cyanosis. Lymphatics: No peripheral edema. LABORATORY DATA: White count 3.8, hemoglobin and hematocrit 14 and 42. Platelets 138,000. Chemistries look fine. AST is 43. GGT is a little bit up at 59 although he denies any current alcohol use. PROBLEM LIST: 1. Seizures, likely primary seizure disorder. We will resume his Keppra and his Neurontin. I am going to add Lamictal. I would like to get a Neurology consult and we may have to wait until Friday for that to transpire and go ahead and pursue EEG if the patient is willing. I am going to monitor him for another 24 hours. 2. Alcohol abuse, history of. He reports no alcohol currently used. He says he has not had any alcohol since September so I am not sure if he is actually going through alcohol withdrawal at this point. We initially started Librium but I am going to hold off on that right now. 3. Hepatitis C. We will continue to monitor. He has mild elevation, probably active disease. Be very conservative with Tylenol products in him. DISPOSITION: Pending his resolution of his seizure disorder. cc: Phillip Barriga MD
--- NOTE | 2017-03-08 14:25 | CONSULTATION ---
DATE OF CONSULTATION: 03/08/2017 SUBJECTIVE: Mr. Ashton is 47 years old with a longstanding history of probable seizures. History from the patient is not verified right now but he reports having a 5 year seizure-free interval while in [facility] taking levetiracetam 1500 mg b.i.d. and gabapentin 1200 mg t.i.d. I believe that he may have been taking clonazepam then, but I am not certain. After release from [facility], he stopped gabapentin for awhile and his levetiracetam dose was 1000 mg b.i.d. With that management, he was having seizures several days per week, by his report. He added clonazepam about 2-1/2 weeks ago, by his report, and then did not have another seizure like episode until the last few days. Here in the hospital, he has had some episodes that seemed to be typical tonic clonic and some other episodes that were less typical. I have seen Mr. Ashton at the [facility] 10/09/2016. History then was that seizures had sometimes been attributed to alcohol withdrawal and that there was never a focal neurologic feature. Workup including imaging has always been unremarkable. He has never had a neurologic deficit on exam. There was note of intrinsic hand muscle atrophy on the left. EEG then was normal. ASSESSMENT/PLAN: I agree with plans to increase levetiracetam, resume gabapentin, follow up carefully with clonazepam. In light of his history, agree with order to increase levetiracetam to 1500 mg IV q12 hours. That can be switched to p.o. at any point. His gabapentin current order is 1200 mg p.o. b.i.d. and I will change that to t.i.d. to match his reported baseline dose. I cautioned him to be careful with clonazepam, particularly with tapering the dose and we discussed habituation and possible withdrawal symptoms including seizure. I offered to follow Mr. Ashton as an outpatient. Thanks for asking me to see him here. cc: MD ISHMAEL Tellez III
[2017-03-08] MEDS: KEPPRA 1,500 MG in NS 100 ML IV SCH (17:14)
[2017-03-08] MEDS ORDERED: PHENOBARBITAL IV ONE (18:17)
[2017-03-08] MEDS ORDERED: STERILE WATER INJ. ONE (18:29)
[2017-03-08] MEDS: ATIVAN 20 MG in NS 190 ML IV SCH (19:30)
[2017-03-08] MEDS: NEURONTIN PO SCH (20:56)
[2017-03-08] MEDS: LOVENOX SUBQ SCH (20:56)
[2017-03-09] MEDS ORDERED: ATIVAN IV ONE (03:00)
[2017-03-09] MEDS ORDERED: NS IV ONE (03:00)
[2017-03-09] MEDS: ATIVAN 20 MG in NS 190 ML IV SCH ×3 (04:30→22:30)
[2017-03-09] MEDS: KEPPRA 1,500 MG in NS 100 ML IV SCH ×2 (06:02→17:41)
[2017-03-09] MEDS: PRILOSEC PO SCH (06:02)
[2017-03-09 08:16] LABS: HEMATOCRIT 43.6 % (42.0-52.0); HEMOGLOBIN 15.1 g/dL (14.0-18.0); MCH 32.1 PG (27-31); MCHC 34.6 g/dL (33-37); MCV 92.8 FL (81-99); MPV 9.1 FL (7.4-10.4); RBC 4.7 XMIL (4.7-6.1)
[2017-03-09 08:27] LABS: AGAP 10; ALKALINE PHOSPHATASE 71 U/L (32-122); BUN 18 mg/dL (8-22); CALCIUM 8.7 mg/dL (8.8-10.2); CHLORIDE 104 mmol/L (98-107); COSMO 277; GOT 38 U/L (10-34); GPT 37 U/L (10-44); POTASSIUM 4.3 mmol/L (3.5-5.1); SODIUM 138 mmol/L (136-145); TCO2 23 mmol/L (25-35); TOTAL PROTEIN 6.9 g/dL (6.3-8.3)
[2017-03-09] MEDS ORDERED: ATIVAN 20 MG in NS 190 ML IV SCH (09:00)
[2017-03-09] MEDS: NEURONTIN PO SCH ×3 (09:42→17:41)
[2017-03-09] MEDS: LAMICTAL PO SCH ×2 (09:42→21:55)
[2017-03-09] MEDS: MORPHINE IV PRN ×3 (10:22→22:30)
[2017-03-09] MEDS: KLONOPIN PO PRN ×2 (11:05→22:30)
[2017-03-09] MEDS ORDERED: SODIUM CHLORIDE 0.9% INJ SCH (11:30)
--- NOTE | 2017-03-09 11:55 | PROGRESS NOTE ---
DATE: 03/09/2017 SUBJECTIVE: Patient has no focal complaints. He continues to have frequent seizures. He had several yesterday afternoon, at least 1 in the morning. He has had another 1 this morning and that is on multiple medications. We have had to initiate an Ativan drip. PHYSICAL EXAMINATION: Vital signs: Blood pressure 90/58, heart rate of 84, respiratory of 10, temperature 98.5 degrees. Cardiovascular: Regular rate and rhythm. Pulmonary: Bilateral breath sounds. Clear to auscultation. GI: Soft, nontender, nondistended. Bowel sounds were positive. Extremities: No clubbing or cyanosis. Lymphatics: No peripheral edema. Neurological: Nonfocal. He is lethargic but he is awake. He does have seizures. LABORATORY DATA: White count 3.7, hemoglobin and hematocrit are 15 and 43. His platelets have dropped to 72,000. AST is staying around 38. PROBLEM LIST: 1. Seizure disorder. Still not very well controlled. I would greatly appreciate Dr. Vang's intervention. We are trying to pursue an EEG. He is on Keppra 1500 twice a day. He is on gabapentin twice a day and Lamictal 100 b.i.d. I am going to go ahead and increase his Neurontin because he usually takes 1200 three times a day. At this point I am not sure if this is a component of withdrawal, either from benzodiazepines or from alcohol, although he denies any chronic alcohol use. I cannot imagine he is withdrawing from benzodiazepines since he is getting them pretty much continuously. He is on a low-dose Ativan drip and we will continue to follow. EEG pending and we will continue to monitor. 2. Polysubstance abuse. Aware. Will continue to monitor. No drugs are in his system at this point. No alcohol either. His GGT was mildly elevated. 3. Hepatitis C. Will continue to follow. His levels are very minimally elevated. He will need treatment as an outpatient once the stabilizes. 4. Disposition. He is obviously still not ready for transfer anywhere because he is still requiring continuous monitoring and seizure control, so we will monitor in the ICU. cc: Phillip Barriga MD
[2017-03-09] MEDS ORDERED: POTASSIUM CHLORIDE 20 MEQ, MAGNESIUM SULFATE 2 GM, THIAMINE 100 MG, FOLIC ACID 1 MG, M.... IV SCH ×6 (12:00)
[2017-03-09] MEDS: PROTONIX IV SCH (12:23)
[2017-03-09] MEDS: POTASSIUM CHLORIDE 20 MEQ, MAGNESIUM SULFATE 2 GM, THIAMINE 100 MG, FOLIC ACID 1 MG, M.... IV SCH ×6 (12:23)
[2017-03-09] MEDS: VICOPROFEN 200/7.5 MG PO PRN (22:46)
[2017-03-09] MEDS: ATIVAN IV PRN (23:59)
[2017-03-10] MEDS ORDERED: PHENOBARBITAL IV PRN (01:46)
[2017-03-10] MEDS: HALDOL IV PRN (02:10)
[2017-03-10] MEDS: MORPHINE IV PRN ×2 (02:10→21:13)
[2017-03-10] MEDS: KEPPRA 1,500 MG in NS 100 ML IV SCH ×2 (05:04→18:19)
[2017-03-10 06:53] LABS: HEMATOCRIT 40.7 % (42.0-52.0); HEMOGLOBIN 13.8 g/dL (14.0-18.0); MCH 31.2 PG (27-31); MCHC 33.9 g/dL (33-37); MCV 92.1 FL (81-99); RBC 4.42 XMIL (4.7-6.1)
[2017-03-10 07:06] LABS: AGAP 10; ALBUMIN 3.6 g/dL (3.5-5.0); ALKALINE PHOSPHATASE 65 U/L (32-122); BUN 13 mg/dL (8-22); CALCIUM 8.6 mg/dL (8.8-10.2); CHLORIDE 105 mmol/L (98-107); COSMO 277; GOT 37 U/L (10-34); GPT 36 U/L (10-44); SODIUM 139 mmol/L (136-145); TCO2 24 mmol/L (25-35); TOTAL PROTEIN 6.8 g/dL (6.3-8.3)
[2017-03-10] MEDS: ATIVAN 20 MG in NS 190 ML IV SCH ×2 (09:10→21:12)
[2017-03-10] MEDS: NEURONTIN PO SCH ×3 (09:10→18:17)
[2017-03-10] MEDS: LAMICTAL PO SCH ×2 (09:10→21:12)
[2017-03-10] MEDS: PROTONIX IV SCH (12:13)
[2017-03-10] MEDS: POTASSIUM CHLORIDE 20 MEQ, MAGNESIUM SULFATE 2 GM, THIAMINE 100 MG, FOLIC ACID 1 MG, M.... IV SCH ×6 (12:13)
--- NOTE | 2017-03-10 12:24 | PROGRESS NOTE ---
DATE: 03/10/2017 SUBJECTIVE: Patient has no focal complaints. Sedated, but he has not had any other events since yesterday. OBJECTIVE: Blood pressure 100/67, respiratory rate of 8, pulse rate 80, temp 97.9 degrees, 98% on room air.Cardiovascular: Regular rate and rhythm. Pulmonary: Bilateral breath sounds. Clear to auscultation. GI: Soft, nontender, nondistended. Bowel sounds are positive. Extremities: No clubbing or cyanosis. Lymphatics: No peripheral edema. Neurological: Nonfocal. LABORATORY DATA: CMP looked okay. CBC looked okay. Hemoglobin and hematocrit had dropped a little bit. His platelets have come up at 106,000 today. PROBLEM LIST: 1. Seizure disorder. It looks like he is controlled. He is on Keppra 1500 b.i.d., Lamictal 100 b.i.d. and Neurontin 1200 t.i.d. We are going to try to wean him off the Ativan and follow closely. Neurology is following. EEG I think was obtained yesterday so we will follow up on that report. 2. Polysubstance abuse. I am not sure if there may be a concurrent withdrawal process going on here but we are keeping a close eye on that. DISPOSITION: If we can get him off the Ativan drip I think he can go to the floor and possibly be even discharged if he does not have any further seizure activity. cc: Phillip Barriga MD
--- NOTE | 2017-03-10 21:20 | EEG REPORT ---
DATE: 03/09/2017 COMMENT: This is a digitally recorded EEG on a 47-year-old patient with reported longstanding seizure disorder. FINDINGS: Most of the record is recorded in stage 2 sleep, with sleep spindles and K complexes noted. There is generalized slowing into the theta and delta range symmetrically. Photic stimulation did not significantly alter the record. Brief waking record showed poorly-sustained 9- 10 Hz posterior rhythm, with uncertain reactivity to eye opening. No definite epileptiform discharge was identified. INTERPRETATION: Normal EEG. CORRELATION: The absence of epileptiform discharges on a single EEG does not exclude a clinical diagnosis of seizures. cc: MD Phillip Tellez III, MD
[2017-03-11] MEDS: ATIVAN 20 MG in NS 190 ML IV SCH ×2 (03:52→15:10)
[2017-03-11] MEDS: KEPPRA PO SCH ×2 (05:44→17:47)
[2017-03-11 06:47] LABS: HEMATOCRIT 42.5 % (42.0-52.0); HEMOGLOBIN 14.5 g/dL (14.0-18.0); MCH 30.9 PG (27-31); MCHC 34.1 g/dL (33-37); MCV 90.4 FL (81-99); MPV 9.4 FL (7.4-10.4); RBC 4.7 XMIL (4.7-6.1)
[2017-03-11 06:55] LABS: AGAP 9; BUN 12 mg/dL (8-22); CHLORIDE 104 mmol/L (98-107); COSMO 276; POTASSIUM 3.8 mmol/L (3.5-5.1); SODIUM 139 mmol/L (136-145); TCO2 26 mmol/L (25-35)
[2017-03-11] MEDS: NEURONTIN PO SCH ×3 (08:39→17:47)
[2017-03-11] MEDS: LAMICTAL PO SCH ×2 (08:39→21:50)
[2017-03-11] MEDS: MORPHINE IV PRN ×3 (08:40→17:48)
[2017-03-11] MEDS: KLONOPIN PO PRN ×2 (11:29→22:45)
[2017-03-11] MEDS: PROTONIX IV SCH (11:29)
[2017-03-11] MEDS: POTASSIUM CHLORIDE 20 MEQ, MAGNESIUM SULFATE 2 GM, THIAMINE 100 MG, FOLIC ACID 1 MG, M.... IV SCH ×6 (12:31)
--- NOTE | 2017-03-11 12:44 | PROGRESS NOTE ---
DATE: 03/11/2017 SUBJECTIVE: The patient has no focal complaints. He is awake and alert. He is cooperative. He has had no seizure activity. He denies any pain, nausea, vomiting. OBJECTIVE: Vital Signs: Blood pressure is 100/55 with a heart rate of 82, respirations are 16, temperature is 98.4 degrees, with a room air saturation of 94% to 97%. Cardiovascular: Regular rate and rhythm. S1 and S2 appreciated. Pulmonary: Breath sounds are clear, with no increased work of breathing noted. Gastrointestinal: Abdomen is soft, nontender, nondistended, with bowel sounds in all 4 quadrants. Extremities: No clubbing, cyanosis, or edema. Pulses are palpable x4. Calves are nontender. Neurologic: Nonfocal examination. LABORATORIES: WBC is 4.9 with hemoglobin 14.5, hematocrit 42.5, and platelets of 127,000. Sodium 139, potassium 3.8, BUN 12, creatinine 0.7, with a glucose of 76. ASSESSMENT AND PLAN: 1. Seizure disorder. He has had no further seizures. Ativan drip has been discontinued. We will continue with his Keppra, Lamictal, and Neurontin. EEG revealed no seizure activity. Dr. Vang has no further recommendations. We will continue to follow with him. 2. Polysubstance abuse. We are not sure if there was a concurrent withdrawal process going on, but will continue to monitor. 3. Disposition: We will move the patient to the floor. If he has no further seizure activity, hopefully, after he gets up and walks around and becomes more active, we can discharge later today or in the morning. Dictated by FATOU Medeiros for Rogers Bowles MD cc: FATOU Medeiros MD
[2017-03-11] MEDS: ATIVAN IV PRN ×2 (19:33→22:30)
[2017-03-11] MEDS: HALDOL IV PRN (22:40)
[2017-03-12] MEDS: KEPPRA PO SCH (05:52)
[2017-03-12] MEDS: NEURONTIN PO SCH (08:24)
[2017-03-12] MEDS: LAMICTAL PO SCH (08:24)
[2017-03-12] MEDS: KLONOPIN PO PRN (08:26)
[2017-03-12 09:35] VITALS: BP 101/76
--- NOTE | 2017-03-12 11:53 | DISCHARGE SUMMARY ---
ADMISSION DATE: 03/07/2017 DISCHARGE DATE: 03/12/2017 DISCHARGE DIAGNOSES: 1. Recurrent seizures. 2. Pseudoseizures. See below. 3. Polysubstance abuse. 4. Known history of hepatitis C. 5. Traumatic brain injury in 2008. 6. Chronic tobacco abuse. 7. Chronic alcohol abuse. CONSULTATIONS: Dr. Vang. PROCEDURES: EGD. BRIEF HOSPITAL COURSE: The patient is a 47-year-old male who was admitted as noted on the HPI. He was placed in the ICU secondary to multiple seizures. He was noted to have true seizures in the hospital. However, also during the hospital stay, he had what appeared to be pseudo seizures. The nurse entered the room and asked him a question. Mr. Ashton turned his head and stared out the window and refused to answer. Upon her re-entering the room, he told her that he had a seizure. In addition, he had a shaking spell, where when his arm was moved, he resisted his arm being moved by the nurse. This lasted about 30 seconds, according to the nurse. After it stopped, he again told her that he had had another seizure. He was immediately awake, alert, oriented afterwards. He was moved back to the ICU for closer observation. At that point, he told the nurse that he was just going to leave AGAINST MEDICAL ADVICE because he knew they were talking about his seizures. Thankfully, he did not do this. DISPOSITION: The patient will be discharged home. DISCHARGE MEDICATIONS: Prescriptions written for: 1. Gabapentin 600 mg 3 times a day, #90, no refills. 2. Klonopin 1 mg, although this was decreased to b.i.d., #60 with 1 refill. 3. Lamictal 100 mg b.i.d. 4. Keppra 500 mg 3 twice a day. FOLLOWUP: He will follow up outpatient with Dr. Vang and with primary care of his choice. TIME SPENT: 45 minutes were spent in discharge planning and instructions. cc: Rogers Bowles MD
== END 2017-03-12 09:36 | disposition home or self-care (01) ==
LOC: ED 14:14 → P.MEDSURG 14:14 → SUATTDRO 17:02 → OBSVTOIN 17:02 → P.ICU 19:12 → P.MEDSURG 03-11 15:30 → P.ICU 03-11 21:32
PROVIDERS: ATTEND Family Medicine